=== PATIENT | male | born 1945 | race Caucasian/White ===

== ENCOUNTER 2025-04-05 00:54 | Inpatient (IN) | payer OTHER, MEDICARE ==
[~2025-04-05] VITALS: Ht 172.7 cm; Wt 79.0 kg
[~2025-04-05 00:54] MED LIST: TAMS-55 PO; VITA-268 PO
--- NOTE | 2025-04-05 01:50 | Physician Documentation ---
History of Present Illness ~ Chief Complaint: Mechanical Fall Stated Complaint: MOBILITY ISSUES Time Seen by MD: 01:41 Primary Medical Doctor: GAMAL Mode of Arrival: EMS HPI Patient presents to the emergency room with bilateral leg weakness left greater than right. He has been having unsteady gait for the past two days and fell two days ago with positive head strike. He got up this evening in the middle of the night to go urinate in an up falling secondary to his weakness. He has been seen here previously for urinary tract infection with similar symptoms however he had denies any urinary complaints at this time but he does wear a diaper. States he went to bed at 9:00 p.m. able to ambulate. He is not on blood thinners Tetanus within 5 Years?: No Medication Reconciliation Allergies: Coded Allergies: No Known Allergies (Unverified , 12/05/12) Scheduled Tamsulosin Hcl* (Flomax*), 1 CAP PO DAILY, (Reported) Vitamin B Complex (B Complex), 1 TAB PO DAILY, (Reported) Past Medical History Past Medical History: BPH Past Surgical History: tonsillectomy Alcohol Use: None Lives In: Home Review of Systems ROS All review of systems negative except as per HPI Physical Exam Vital Signs: Temperature: 99.5, Source: Oral, Heart Rate: 62, Respiratory Rate: 18, BP: 124/70, Pulse Oximetry: 95, Weight: 79.000 Oxygen Flow Rate: 0 Physical Exam General: Patient is awake, alert, oriented x4 in no Head: Normocephalic, bruise noted to lateral right eyebrow. Chromic appearing ulcer beneath right nostril Eyes: Conjunctival normal. EOMI. PERRL. ENT: Mucous membranes moist. Neck: Supple, trachea is midline. Chest: Clear to auscultation bilaterally without rales, rhonchi, or wheezes. There is no accessory muscle use or retractions. Cardiac: RRR without murmurs, gallops, or rubs. Abd: Soft, nondistended, nontender, with normoactive bowel sounds. No guarding, rebound, or rigidity. Extremities: Significant bilateral lower extremity weakness left greater than right Progress Progress Note 7:50 a.m. discussed the case with the residency and attending photograph tinter. Patient was admitted to their service. Formal tele neurology consultation was requested at this time. Urinalysis is still pending there were some issues with the patient being inappropriate towards female patient's and the patient was also refusing any treatment from a male nurse. Reviewing laboratory work there is a slight leukocytosis and left shift but otherwise lactic acid and procalcitonin were both negative. Second troponin is negative Results/Orders Results/Orders Orders - MURPHY MCQUEEN MD Electrocardiogram (04/05/25 01:41) Culture Blood (04/05/25 01:41) Chest,Single View (04/05/25 01:41) Ct Head (04/05/25 02:00) Ct Cervical Spine (04/05/25 01:50) Page Hospitalist (04/05/25 05:31) Fill Out Med Reconciliation (04/05/25 05:31) Completed Orders - MURPHY MCQUEEN MD Electrocardiogram (04/05/25 01:41) Cbc/Diff (04/05/25 01:41) MG (04/05/25 01:41) Urinalysis, Cult If Indicated (04/05/25 01:41) Chest,Single View (04/05/25 01:41) Procalcitonin (04/05/25 01:41) BMP (04/05/25 01:41) Lacticsepsis (04/05/25 01:41) Normal Saline 1000ml (Sodium Chloride 10 (04/05/25 01:45) Troponin (Single) (04/05/25 01:50) Ct Head (04/05/25 02:00) Ct Cervical Spine (04/05/25 01:50) Vital Signs 04/05/25 04/05/25 04/05/25 04/05/25 01:13 01:17 04:03 05:49 Temp 99.5 Pulse 62 63 59 Resp 18 15 16 B/P (MAP) 124/70 130/46 (74) 143/56 (85) Pulse Ox 95 95 95 O2 Flow Rate 0 0 0 04/05/25 06:40 Temp 99.5 Pulse 58 Resp 18 B/P (MAP) 128/51 (76) Pulse Ox 98 O2 Flow Rate 0 Laboratory Tests Test 04/05/25 02:05 04/05/25 06:53 White Blood Count 12.8 H Red Blood Count 4.63 L Hemoglobin 14.3 Hematocrit 42.6 Mean Corpuscular Volume 91.9 Mean Corpuscular Hemoglobin 30.8 Mean Corpuscular Hemoglobin Concent 33.6 Red Cell Distribution Width 13.1 Platelet Count 261 Mean Platelet Volume 7.6 Neutrophils (%) (Auto) 77.9 H Lymphocytes (%) (Auto) 10.3 L Monocytes (%) (Auto) 9.8 Eosinophils (%) (Auto) 1.1 Basophils (%) (Auto) 0.9 Neutrophils # (Auto) 10.0 H Lymphocytes # (Auto) 1.3 Monocytes # (Auto) 1.3 H Eosinophils # (Auto) 0.1 Basophils # (Auto) 0.1 CBC Comment Sodium Level 142 Potassium Level 4.5 Chloride Level 108 H Carbon Dioxide Level 25.7 Anion Gap 8 Blood Urea Nitrogen 19 H Creatinine 1.37 H Estimated GFR/1.73 m2 50 BUN/Creatinine Ratio 13.9 Glucose Level 147 H Lactic Acid Level 1.2 Calcium Level 8.9 Magnesium Level 2.0 Troponin I High Sensitivity 88 *H 73 Albumin 3.3 L Procalcitonin < 0.05 Chemistry Comments Microbiology Date/Time Source Procedure Growth Status 04/05/25 02:05 Blood Arm Left Blood Culture - Preliminary NO GROWTH AFTER 1 DAY Resulted Re-Evaluation Re-Evaluation : Re-Evaluation: Unchanged EKG/XRAY/CT/US/VASC/MRI EKG : Additional Comment EKG interpreted by myself who is time of 0207, rate 66, sinus rhythm, left axis deviation, right bundle-branch block, no ST changes Chest X-Ray : Additional Comments Exam: CHEST,SINGLE VIEW CHEST RADIOGRAPH Indication: SEPSIS Technique: Single frontal view of the chest was obtained COMPARISON: CHEST,SINGLE VIEW on DOS: 02/09/23 FINDINGS: Lines and Tubes: None Lungs: Clear Pleura: No effusion. No pneumothorax. Cardiomediastinal contours: Unremarkable Bones: Unremarkable IMPRESSION: 1. No acute disease. Medical Decision Making Findings Patient presents to the emergency room for evaluation of bilateral lower extremity weakness. Last time known normal was at least before he went to bed last night which is outside the window for possible TNK. Symptoms may have even been before this when he fell the day before from weakness. Nonetheless see as unstable gait and unable to walk at this time and will require admission Departure Admitted to Inpatient Unit: yes, to hospitalist Admission Level of Care: Neuro with Tele Impression: Primary Impression: Weakness Additional Impression: Possible stroke Condition: Guarded Referrals: NO PRIMARY CARE PROVIDER (PCP) Signature Scribe Signature: No scribe Attestation: The note accurately reflects work and decisions made by me.Murphy Mcqueen MD 04/05/25 03:28 MURPHY MCQUEEN MD Apr 05, 2025 01:50 STEPHY LANDAVERDE MD Apr 05, 2025 07:53
--- NOTE | 2025-04-05 02:09 | ELECTROCARDIOGRAPH REPORT ---
[facility] Test Date: 2025-04-05 Test Time: 02:07:44 Pat Name: NIDHI VILLALOBOS Department: [facility]-ER Patient ID: [facility]-[id number] Room: Gender: M Prehemmer: BRITNEY : 1945 Requested By: RAS KULKARNI Order Number: [id number] Reading MD: Dr. Armando Chavez Measurements Intervals [place] Rate: 66 P: 0 OR: 53 QRS: -63 QRSD: 139 T: 17 QT: 414 QTc: 434 Interpretive Statements Sinus rhythm Short OR interval RBBB and LAFB Baseline wander in lead(s) II,V2,V3 Electronically Signed On 04-05-2025 6:34:[address] Armando Chavez Please click the below link to view image of tracing.
[2025-04-05 02:17] LABS: BASOPHILS # (AUTO) 0.1 X10'3 (0-0.2); BASOPHILS % (AUTO) 0.9 % (0-1); EOSINOPHILS # (AUTO) 0.1 X10'3 (0-0.9); EOSINOPHILS % (AUTO) 1.1 % (0-6); HEMATOCRIT 42.6 % (42.0-52.0); HEMOGLOBIN 14.3 g/dl (14.0-17.9); LYMPHOCYTES # (AUTO) 1.3 X10'3 (1.1-4.8); LYMPHOCYTES % (AUTO) 10.3 % (21-51); MEAN CORPUSCULAR HEMOGLOBIN 30.8 PG (27.0-31.0); MEAN CORPUSCULAR HGB CONC 33.6 g/dL (33.0-36.5); MEAN CORPUSCULAR VOLUME 91.9 FL (78-98); MEAN PLATELET VOLUME 7.6 FL (7.4-10.4); MONOCYTES # (AUTO) 1.3 X10'3 (0-0.9); MONOCYTES % (AUTO) 9.8 % (2-12); NEUTROPHILS % (AUTO) 77.9 % (42-75); PLATELET COUNT 261 X10'3 (140-440); RED BLOOD COUNT 4.63 X10'6 (4.70-6.10); RED CELL DISTRIBUTION WIDTH 13.1 % (11.5-14.5); WHITE BLOOD COUNT 12.8 X10'3 (4.5-11.0)
--- NOTE | 2025-04-05 02:27 | RADIOLOGY REPORT ---
CHEST RADIOGRAPH Indication: SEPSIS Technique: Single frontal view of the chest was obtained COMPARISON: CHEST,SINGLE VIEW on DOS: 02/09/23 FINDINGS: Lines and Tubes: None Lungs: Clear Pleura: No effusion. No pneumothorax. Cardiomediastinal contours: Unremarkable Bones: Unremarkable IMPRESSION: 1. No acute disease.
[2025-04-05 02:33] LABS: ALBUMIN 3.3 G/DL (3.4-5.0); ANION GAP 8 (8-16); BLOOD UREA NITROGEN 19 MG/DL (7-18); BUN/CREATININE RATIO 13.9 (10.0-20.0); CALCIUM 8.9 MG/DL (8.5-10.1); CHLORIDE 108 MMOL/L (99-107); CREATININE 1.37 MG/DL (0.60-1.10); GLUCOSE 147 MG/DL (70-104); POTASSIUM 4.5 MMOL/L (3.5-5.1); SODIUM 142 MMOL/L (135-145); TOTAL CARBON DIOXIDE 25.7 MMOL/L (24-32); eCRCL 43 ML/MIN; eGFR 50 ML/MIN
[2025-04-05] MEDS: normal saline 1000ml 1,000 ML IV ONE (02:37)
--- NOTE | 2025-04-05 03:03 | RADIOLOGY REPORT ---
EXAM: CT CT HEAD INDICATION: Head strike, TECHNIQUE: CT of the head without intravenous contrast. Radiation Dose : 1. Head: CT Dose: CTDI volume is 62.37 mGy. Dose-length product is 1270.1 mGy*cm The dose indicators for CT are the volume Computed Tomography (CT) Dose Index (CTDIvol) and the Dose Length Product (DLP), and are measured in units of mGy and mGy-cm, respectively. These indicators are not patient dose, but values generated from the CT scanner acquisition factors. The report includes radiation exposure data for exposures received during this examination. COMPARISON: CT HEAD on DOS: 02/11/23, CT HEAD on DOS: 02/09/23 FINDINGS: There is no evidence of acute intracranial hemorrhage, extra-axial collection, mass effect, midline s hift, herniation or hydrocephalus. Increased prominence of the ventricles, sulci and cisterns is consistent with the sequelae of atrophi c cortical volume loss. The garsia-white differentiation is intact. Moderate diffuse partially confluent periventricular and subcortical white matter hypoattenuation is likely related to small vessel ischemic disease. The visualized paranasal sinuses and mastoid air cells are clear. The surrounding soft tissues and osseous structures are unremarkable. IMPRESSION: 1. No acute intracranial abnormality. 2. 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 Radiation optimization: All CT scans at this facility use at least one of these dose optimization isael hniques: automated exposure control mA and/or kV adjustment per patient size (includes targeted exam s where dose is matched to clinical indication) or iterative reconstruction.
--- NOTE | 2025-04-05 03:04 | RADIOLOGY REPORT ---
EXAM: CT CT CERVICAL SPINE HISTORY: Head strike, COMPARISON: None CTDIvol 22 mGy, DLP 581 mGy*cm. TECHNIQUE: Multiple axial CT images of the spine were obtained using bone algorithm. Axial and avendano l reformatting was done. Bone and soft tissue windows were reviewed. FINDINGS: No evidence of definite acute fracture, spinal dislocation, or significant appearing acute subluxatio n is seen. Multilevel degenerative changes of the spine. IMPRESSION: No definite CT evidence of acute fracture or dislocation of the bony cervical spine.
[2025-04-05] MEDS ORDERED: bisacodyl 10mg suppository rectal RC PRN (07:45)
[2025-04-05] MEDS ORDERED: acetaminophen 325mg tablet PO PRN ×2 (07:45)
[2025-04-05] MEDS ORDERED: HYDROcodone/acetaminophen 5mg/325mg tablet PO PRN (07:45)
[2025-04-05] MEDS ORDERED: magnesium Cl slow-release 64mg tablet PO PRN (07:45)
[2025-04-05] MEDS ORDERED: potassium Cl 20 mEq SR tablet PO PRN ×2 (07:45)
[2025-04-05] MEDS ORDERED: morphine 2 MG/ML inj. syringe IV PRN (07:45)
[2025-04-05] MEDS ORDERED: magnesium sulf-water 4G/100mL 100 ML IV PRN (07:45)
[2025-04-05] MEDS ORDERED: magnesium hydroxide 30ml (MOM) UD suspension PO PRN (07:45)
[2025-04-05] MEDS ORDERED: ondansetron/PF 4mg/2ml inj IV PRN (07:45)
[2025-04-05] MEDS ORDERED: potassium Cl 40MEQ/1/2NS 520ml 520 ML IV PRN (07:45)
[2025-04-05] MEDS ORDERED: HYDROmorphone inj. 0.5 MG/0.5 ML DISP.SYRIN IV PRN (07:45)
[2025-04-05] MEDS ORDERED: mag hydrox/Alum hydrox/simeth 30ml oral suspension PO PRN (07:45)
[2025-04-05] MEDS ORDERED: magnesium sulf-water 2g/50mL 50 ML IV PRN (07:45)
[2025-04-05] MEDS: heparin, porcine 5000 units/ml vial SQ SCH (07:58)
[2025-04-05] MEDS: docusate sod 100mg capsule PO SCH (07:58)
[2025-04-05] MEDS: K and/or MAG REPLACEMENT MC SCH (07:58)
[2025-04-05] MEDS: normal saline 1000ml 1,000 ML IV SCH (08:00)
[2025-04-05 08:43] LABS: APTT 26 SECONDS (22-32); PROTHROMBIN TIME 10.2 SECONDS (9.0-12.0)
[2025-04-05 08:55] LABS: MAGNESIUM 1.8 MG/DL (1.5-2.4); POTASSIUM 3.9 MMOL/L (3.5-5.1)
[2025-04-05] MEDS: CefTRIAXone 2gm/D5W 50ml BAG 50 ML IV SCH (09:01)
[2025-04-05 09:03] LABS: HEMOGLOBIN A1C 5.8 % (4.5-6.2)
--- NOTE | 2025-04-05 09:18 | CONSULTATION REPORT ---
History of Present Illness Providers to CC ~ Refering MD: GAMAL Allergies: Coded Allergies: No Known Allergies (Unverified , 12/05/12) Home Medications Home Medications Active Reported B Complex (Vitamin B Complex) 1 Each Tablet 1 Tab PO DAILY Flomax* (Tamsulosin HCl) 0.4 Mg Cap.sr.24h 1 Cap PO DAILY 30 Days Physical Exam Last Vital Signs Recorded: Temperature: 99.5, Source: Oral, Heart Rate: 57, Respiratory Rate: 18, BP: 140/53, Pulse Oximetry: 98, Weight: 79.000 Results Diagram Lab Result Diagram: 04/05/25 0205 04/05/25 0759 Assessment/Plan Additional Plan [place] [facility] Note # Demographics Consult Type: Acute Stroke Level 2 (4.5-24 hrs) Patient Location: Emergency Room First Name: NIDHI Last Name: WILFREDO Date of : 1945 Age: 80 Gender: Male Facility: [facility] Time of Initial Page (): 04/05/2025 08:21 Time of Return Call (): 04/05/2025 08:22 # HPI Chief Complaint: - weakness (focal) History: 80 y/o M presents with worsening balance over the last couple days. Balance has been worse over many years. Fell yesterday. No clear provoking factor. Does use a walker. Fell yesterday because he was using his cane, not his walker. Does endorse weakness in his left leg for the last couple days. No thinners. No prior stroke. Does have pain in his left leg--onset this morning. Does have a chronic back problem. # Scores Time of exam and NIHSS (Deuel ): 04/05/2025 08:25 Level of Consciousness 1a: [0] = Alert; keenly responsive LOC Questions 1b: [0] = Answers both questions correctly LOC Commands 1c: [0] = Performs both tasks correctly Best Gaze 2: [0] = Normal Visual 3: [0] = No visual loss Facial Palsy 4: [0] = Normal symmetrical movements Motor Arm Left 5a: [0] = No drift Motor Arm Right 5b: [0] = No drift Motor Leg Left 6a: [1] = Drift Motor Leg Right 6b: [0] = No drift Limb Ataxia 7: [0] = Absent Sensory 8: [0] = Normal Best Language 9: [0] = No aphasia Dysarthria 10: [0] = Normal Extinction and Inattention 11: [0] = No abnormality NIHSS Total: 1 # Data Head CT: - no bleed - per radiologist read # Assessment Impression: - Weakness Possible stroke given the left leg weakness, though stroke mimics also possible # Plan Thrombolytic/Intervention: NOT IV Thrombolysis or IA Intervention candidate Thrombolytic Exclusion: > 4.5 hours Intraarterial Exclusion: - clinical exam not consistent with presence of large vessel occlusion (LVO), can reconsider if LVO found on vascular imaging Target Blood Pressure: SBP < 220 Labs: - hemoglobin A1c - lipid panel - B12 Imaging: (urgency: STAT): - CT Angiogram Head and CT Angiogram Neck AND call back with results if abnormal Imaging: (urgency: routine): - MRI Brain without contrast - MRI L spine Therapy/Evaluation: - speech/swallow consultation - PT/OT evaluation Medication: - aspirin 81 mg daily - start statin with goal of LDL < 70 Other: - If patient has any neurological deterioration please call me back immediately - LDL < 70 - telemetry monitoring - permissive hypertension - I have discussed my recommendations with the referring provider Additional Recommendations: Extent of stroke w/u to depend on MRI results and clinical course. # Logistics Attestation of consult completion: The patient is located at: [facility]. Facility staff participated in the visit. I performed this telemedicine visit from my offsite office utilizing interactive 2 way audio and visual telecommunication technology. Total time spent in telemedicine encounter: I spent 20 minutes reviewing clinical data and/or imaging, obtaining history, examining the patient, communicating with the onsite care team, and in preparation of this report. # Demographics First Name: NIDHI Last Name: WILFREDO Facility: [facility] DONG CHAUDHARI MD Apr 05, 2025 09:18
[2025-04-05 09:32] LABS: BILIRUBIN,URINE NEGATIVE (Neg); CLARITY,URINE CLEAR (Clear); COLOR,URINE YELLOW (Yellow); GLUCOSE, URINE NEGATIVE (Neg); KETONES,URINE NEGATIVE (Neg); LEUKOCYTE ESTERASE ,URINE NEGATIVE (Neg); NITRITES, URINE NEGATIVE (Neg); OCCULT BLOOD,URINE NEGATIVE (Neg); PH,URINE 5.5 (4.8-8.0); PROTEIN,URINE NEGATIVE (Neg); UROBILINOGEN,URINE 0.2 E.U/dL (0.2-1.0)
[2025-04-05 09:33] LABS: UA COLLECTION TYPE NON-SPECIFIED
[2025-04-05 10:00] VITALS: BP 138/58; PULSE 61; RESP 16; TEMP 97.7; O2SAT 96
[2025-04-05] MEDS: PERFLUTREN PROTEIN-A MICROSPHR (Optison) 0.22 MG/ML 3ML VIAL IV ONE (10:10)
[2025-04-05 10:45] VITALS: RESP 16; O2SAT 97
--- NOTE | 2025-04-05 12:13 | HISTORY AND PHYSICAL-Residence ---
History & Physical Providers to CC Resident Creating Document: CHANA GIL, RES ~ History of Present Illness Primary Medical Doctor: GAMAL Reason for Admit\Complaint: Weakness History of Present Illness This is a 80-year-old male with a history of chronic back pain, BPH presents to the ED with a chief complaint of weakness in his left lower extremity since the last five days. Patient mentions that he has had a fall two days ago and hit his head. He is not on any blood thinners. He had another fall in the middle of the night due to weakness. He denies any burning in the urine, increased frequency of urination. He wears a diaper to prevent accidents. He uses walker to ambulate at home usually but yesterday when he fell he was using his cane. He has a history of chronic generalized weakness since the last three years. He is able to swallow normally in the wrist known dysphasia, dysarthria, paresthesia, flank pain, fever. ED course: Tele neurology was consulted who recommended stroke workup with MRI head, MRA and MRI of the spine, vascular ultrasound, echocardiogram with bubble study, LDL goal less than 70 and starting aspirin. There was mild leukocytosis and was started on antibiotics empirically to treat UTI. Not a candidate for thrombolysis. Allergies: Coded Allergies: No Known Allergies (Unverified , 12/05/12) Home Medications Home Medications Active Reported B Complex (Vitamin B Complex) 1 Each Tablet 1 Tab PO DAILY Flomax* (Tamsulosin HCl) 0.4 Mg Cap.sr.24h 1 Cap PO DAILY 30 Days Past Medical History Past Medical History Chronic back pain, BPH, history of UTIs, melanoma (treated) Past Surgical History Surgical History Comment Tonsillectomy Family History Family History: FH: brain cancer FHx: lung cancer Past Social History Social History Comment He is a nonsmoker, nonalcoholic, denies any drug use. Lives with his at home. Denies any significant family history Smoking: Non-Smoker Alcohol Use: None Lives In: Home ROS ROS Reviewed and negative except for the pertinent positives in HPI Exam Vitals: Vital Signs Date Time Temp Pulse Resp B/P (MAP) Pulse Ox O2 Delivery O2 Flow Rate FiO2 04/05/25 11:36 63 04/05/25 10:45 Room Air 04/05/25 09:13 99.5 18 140/53 (82) 98 0 General: General: Well developed, well nourished, no distress. HEENT: Atraumatic, normal conjunctiva, moist mucous membranes. PERRLA. No nystagmus. Neck: Full range of motion, supple. No JVD. Respiratory: Lungs clear, no respiratory distress. Chest: No accessory muscle use, nontender. Cardiovascular: Regular rate and rhythm. S1-S2 normal. No murmurs. Gastrointestinal: Soft, nontender, nondistended. Bowels sounds present. Extremities: No cyanosis clubbing or edema. Back: No CVA tenderness. Neurologic: Oriented x4. Cranial nerves II to XII are intact. Motor strength is 4/5 in the right leg and 3/5 in the left leg. No sensory abnormalities Psychiatric: Normal mood and affect. Skin: Normal color, warm and dry. No edema, no ecchymosis Musculoskeletal: No obvious joint swelling or tenderness noted. Diagnostic Data Last Recorded Lab Results: 04/05/25 0205 04/05/25 0759 Diagnostic Data: Laboratory Tests Test 04/05/25 07:59 Prothrombin Time 10.2 SECONDS (9.0-12.0) INR International Normalized Ratio 1.0 INR Activated Partial Thromboplast Time 26 SECONDS (22-32) Coagulation Comments Additional Plan Weakness Suspected CVA Received 1 unit NS in the ER. Currently on 70 mL/hour NS. [facility] neurology was consulted. Recommendations appreciated Follow up with MRI head, MRA, echocardiogram, MRI of the spine. Check orthostatic vitals. Lactic acid and procalcitonin are within normal limits. CT head shows chronic sequelae of microvascular disease but no evidence of cervical spine fracture. Patient has passed swallow evaluation. PT pending. Neuro checks. Continue aspirin 81 mg daily and atorvastatin 40 mg. Goal LDL less than 70. Follow up with lipid panel, A1c Mild leukocytosis Started on ceftriaxone empirically for suspected infection of unknown source. However UA is negative. Chest x-ray is unremarkable. However patient has mild fever Type 2 TN EKG shows short VT interval, right bundle-branch block and left anterior fascicular block. No evidence of ST or T-wave changes Troponin trending down from 88 to 73 BPH Continue home medication tamsulosin Code Status: Full code DVT Prophylaxis: Heparin Analgesia/Sedation: Morphine p.r.n. Lines/Tubes: PIV Gi Prophylaxis: None Nutrition: Regular diet PT: Yes Prognosis: Guarded Disposition: Admit to ortho floor with telemetry monitoring Chana Carrillo MD Internal Medicine Resident PGY-1 Date of Service: Apr 05, 2025 Billing Provider: JOSHUA HANNAH MD Common Visit Codes: 03447-[id number] INP/OBS CARE (HIGH) Secondary Visit Codes: 04944-[id number] CARE PLAN 30 MINUTES CHANA GIL, RES Apr 05, 2025 12:13 JOSHUA HANNAH MD Apr 05, 2025 19:03
[2025-04-05] MEDS: aspirin 81mg, enteric-coated 1 TAB TABLET.DR PO SCH (14:07)
[2025-04-05] MEDS: atorvastatin 20mg tablet PO SCH (14:07)
--- NOTE | 2025-04-05 17:45 | VASCULAR REPORT ---
Carotid Duplex Clinical History: Pain Comparison: None Technique: Duplex Doppler evaluation of the extracranial carotid and vertebral arteries including color Doppler and spectral/pulsed waveform analysis was performed. Findings: RIGHT SIDE: The peak systolic velocities are 126 cm/s in the CCA, 93 cm/s in the ICA. The ICA/CCA ratio is 0.0. The external carotid artery is patent with peak systolic velocity of 109 cm/s proximally. The subclavian artery is patent with peak systolic velocity of 150 cm/s. There is appropriate antegrade flow in the right vertebral artery. LEFT SIDE: The peak systolic velocities are 102 cm/s in the CCA, 97 cm/s in the ICA. The ICA/CCA ratio is 1.0. The external carotid artery is patent with peak systolic velocity of 99 cm/s proximally. The subclavian artery is patent with peak systolic velocity of 167 cm/s. There is appropriate antegrade flow in the left vertebral artery. IMPRESSION: No hemodynamically significant stenosis noted in the right carotid system. No hemodynamically significant stenosis noted in the left carotid system. Reference: Radiology 2003; 229:340-346 Normal ICA PSV is <125 cm/sec and no plaque or intimal thickening is visible sonographically addition al criteria include ICA/CCA PSV ratio <2.0 and ICA EDV <40 cm/sec <50% ICA stenosis ICA PSV is <125 cm/sec and plaque or intimal thickening is visible sonographically additional criteria include ICA/CCA PSV ratio <2.0 and ICA EDV <40 cm/sec 50-69% ICA stenosis ICA PSV is 125-230 cm/sec and plaque is visible sonographically additional criter ia include ICA/CCA PSV ratio of 2.0-4.0 and ICA EDV of 40-100 cm/sec 70% ICA stenosis but less than near occlusion ICA PSV is >230 cm/sec and visible plaque and luminal narrowing are seen at garsia-scale and color Doppler ultrasound (the higher the Doppler parameters lie above the threshold of 230 cm/sec, the greater the likelihood of severe disease) additional criteria include ICA/CCA PSV ratio >4 and ICA EDV >100 cm/sec
[2025-04-05 18:00] VITALS: BP 117/57; PULSE 64; RESP 15; TEMP 98.5; O2SAT 94
--- NOTE | 2025-04-05 18:01 | CARDIOLOGY REPORT ---
APPROVED REPORT EXAM: Comprehensive 2D, Doppler, and color-flow Echocardiogram. Patient Location: [facility] Heart Rate: 66 bpm Rhythm: SINUS Indications CEREBRALVASCULAR ACCIDENT CONTRAST NOT ORDERED [employer] Faculty Member: NONE Previous echo: NONE 2D Dimensions RVDd 3.2 cm LA Diam4.0 cm LVOT Diameter 2.20 (1.8-2.4cm) CO 4.8 L/min M-Mode Dimensions Left Atrium(MM) 4.08 (2.5-4.0cm) IVSd 1.24 (0.7-1.1cm) LVDd 5.35 (4.0-5.6cm) Aortic Root 3.58 (2.2-3.7cm) PWd 1.28 (0.7-1.1cm) Aortic Cusp Exc 2.22 (1.5-2.0cm) IVSs 1.73 cm MV EPSS 0.6 (<0.5cm) LVDs 3.87 (2.0-3.8cm) FS (%) 28 % PWs 1.85 cm ESV(Teich) 64.8 ml LVEF(%) 53 (>50%) Aortic Valve AoV Peak Aren. 147.3 cm/s AoV VTI 28.5 cm AO Peak GR. 8.7 mmHg AO Mean GR. 5 mmHg LVOT VTI 16.38 cm LVOT Peak Aren. 67.2 cm/s SNOW(VTI)/BSA 2.18 cm2/m2 SNOW (VTI) 2.18 cm2 AI P 1/2 Time 536 ms Mitral Valve MV E Velocity 63.1 cm/s MV Peak Gr. 3 mmHg MV A Velocity 92.5 cm/s MV PHT 56 ms E/A Ratio 0.7 MVA (PHT) 3.93 cm2 MV VMax86.3 cm/s Tricuspid Valve TR P. Velocity 174 cm/s RAP ESTIMATE 10 mmHg TR Peak Gr. 12 mmHg RVSP 22 mmHg LEFT VENTRICLE Normal LV size and wall thickness. Overall systolic function is normal. LVEF is 55-60%. RIGHT VENTRICLE RV is normal size and function. ATRIA Left atrium is mildly dilated. AORTIC VALVE Trileaflet AV appears minimally sclerotic without stenosis. Mild insufficiency. MITRAL VALVE Mild MV annular calcification with leaflet thickening without stenosis. Trace regurgitation. TRICUSPID VALVE TV appears structurally normal with trace regurgitation. PULMONIC VALVE Normal PV without stenosis, physiologic insufficiency. GREAT VESSELS Aortic root is normal in size. Ascending aorta is normal in size. PERICARDIUM Normal pericardium. No effusion. Conclusion Normal LV size and wall thickness. Overall systolic function is normal. LVEF is 55-60%. RV is normal size and function. Left atrium is mildly dilated. Trileaflet AV appears minimally sclerotic without stenosis. Mild insufficiency. Mild MV annular calcification with leaflet thickening without stenosis. Trace regurgitation. TV appears structurally normal with trace regurgitation. Normal pericardium. No effusion.
[2025-04-05 20:00] VITALS: RESP 16; O2SAT 98
[2025-04-05 22:00] VITALS: BP 148/56; PULSE 65; RESP 16; TEMP 100; O2SAT 95
--- NOTE | 2025-04-05 22:32 | PROGRESS NOTE ---
Daily Progress Note Providers to CC ~ Antibiotic Timeout Antibiotic Ordered?: No Subjective The patient informs me that he has been dizzy for a few months however his left lower extremity weakness it was acute in his started yesterday. The patient has no acute complaints currently Objective Vital Signs Date Time Temp Pulse Resp B/P (MAP) Pulse Ox O2 Delivery O2 Flow Rate FiO2 04/05/25 20:00 16 98 Room Air 0.0 04/05/25 18:30 61 04/05/25 10:00 97.7 138/58 (84) Result Diagram: 04/05/25 0205 04/05/25 0759 Gen. No acute distress alert and oriented 4 Lungs clear to ascultation bilaterally, no wheezes rales or rhonchi appreciated Heart normal sinus rhythm no murmurs rubs or clicks noted Abdomen soft nontender bowel sounds are normoactive Lower extremities no clubbing cyanosis, nor edema appreciated bilaterally Neuro: Muscle strength is 5/5 and on the right lower extremity and 5- out of five on the left lower extremity Coagulation Studies Laboratory Tests Test 04/05/25 07:59 Prothrombin Time 10.2 SECONDS (9.0-12.0) INR International Normalized Ratio 1.0 INR Activated Partial Thromboplast Time 26 SECONDS (22-32) Coagulation Comments Problem\Assessment\Plan # acute left lower extremity weakness likely secondary to a acute CVA Evaluated by Dr. Dung Stewart tele neurologist- permissive hypertension MRI of the head has been obtained MRA of the head and neck has a has been obtained Carotid ultrasound was negative for any significant hemodynamic stenosis bilaterally Lumbar spine MRI has been obtained as well Echocardiogram was unremarkable with a LVEF of 55-60% Permissive hypertension allow systolic blood pressure less than 220 81 mg aspirin daily Fasting lipid panel is ordered Note admitted by Dr. Lake today Date of Service: Apr 05, 2025 Billing Provider: DAMI BURRIS DO Common Visit Codes: NOT BILLABLE (Admitted after midnight to be billed by log data technician) DAMI BURRIS DO Apr 05, 2025 22:32
--- NOTE | 2025-04-05 23:01 | RADIOLOGY REPORT ---
PROCEDURE: MR MRA HEAD INDICATION: stroke like symptoms 04/05/2025 09:00 PM COMPARISON: None TECHNIQUE: MRA head without intravenous contrast. 3D image postprocessing was performed on a dedicated workstation and images were used for interpretat ion and reporting. FINDINGS: MRA head: There is preserved enhancement within the bilateral distal internal carotid arteries. There is preserved enhancement within the anterior and middle cerebral arteries. There is preserved enhancement within the vertebral arteries, basilar artery, cerebellar arteries and posterior cerebral arteries. There is no evidence of hemodynamically significant intracranial stenosis, proximal occlusion or aneu rysm. IMPRESSION: No evidence of hemodynamically significant intracranial stenosis, proximal occlusion or aneurysm.
[2025-04-06] VITALS (7 sets, daily range): BP systolic 128–135; BP diastolic 47–60; PULSE 56–72; RESP 16; TEMP 98–99.1; O2SAT 91–95
--- NOTE | 2025-04-06 04:05 | RADIOLOGY REPORT ---
PROCEDURE: MR MRI HEAD INDICATION: Stroke-like symptoms EXAM DATE: 04/05/2025 09:00 PM COMPARISON: CT CT HEAD on DOS: 04/05/25, CT HEAD on DOS: 02/11/23, CT HEAD on DOS: 02/09/23 TECHNIQUE: MRI of the brain without intravenous contrast. FINDINGS: Diffusion weighted images of the brain demonstrate no evidence of acute infarction. There is no evidence of acute intracranial hemorrhage, extra-axial collection, mass effect, midline s hift, herniation or hydrocephalus. Diffuse cerebral atrophy with commensurate prominence of the sulci, ventricles and cisterns. The signal intensities of the brain parenchyma are within normal limits. There is nonspecific periventricular and subcortical T2/FLAIR hyperintense white matter changes. Diff erential includes: Demyelinating disease, chronic microangiopathic change, residua of migraine headac hes or other postinflammatory residua. The major vascular flow voids are present. The visualized paranasal sinuses and mastoid air cells are clear. The surrounding soft tissues and o sseous structures are unremarkable. IMPRESSION: No evidence of acute infarction, intracranial hemorrhage, mass effect or hydrocephalus.
--- NOTE | 2025-04-06 04:07 | RADIOLOGY REPORT ---
PROCEDURE: MR MRA NECK INDICATION: bilateral leg weakness Exam Date: 04/05/2025 09:26 PM COMPARISON: None TECHNIQUE: MRA neck without intravenous contrast. 3D image postprocessing was performed on a dedicated workstation and images were used for interpretat ion and reporting. FINDINGS: MRA neck: The visualized thoracic aortic arch and proximal great vessels are unremarkable. There is no evidenc e of hemodynamically significant stenosis involving the bilateral common and internal carotid arterie s. The cervical vertebral arteries are patent. There is no evidence of dissection. IMPRESSION: No evidence of hemodynamically significant cervical stenosis or dissection. CAROTID STENOSIS REFERENCE Distal internal carotid artery diameter as the denominator for stenosis measurement: MILD = <50% stenosis. MODERATE = 50-69% stenosis. SEVERE = 70-89% stenosis. CRITICAL = 90-99% stenosis. OCCLUDED = 100% stenosis.
--- NOTE | 2025-04-06 04:10 | RADIOLOGY REPORT ---
PROCEDURE: MRI lumbar spine without contrast. INDICATION: Lower extremity weakness COMPARISON: None TECHNIQUE: MRI lumbar spine without intravenous contrast utilizing multiplanar, multisequence techni que. FINDINGS: The alignment of the lumbar spine vertebral bodies is preserved. Bone marrow signal is homogenous and unremarkable. The vertebral body heights are maintained. The intervertebral disc spaces are there is diminished T2 signal intensity in the disc spaces compatible with desiccation. The conus medullaris is normal in signal characteristics and terminates at the T12-L1 level. Paraspinal muscles are unrema rkable. At the T12-L1 level, there is no evidence of central spinal canal or neuroforaminal stenosis. At the L1-L2 level, there is no evidence of central spinal canal or neuroforaminal stenosis. At the L2-L3 level, there is no evidence of central spinal canal or neuroforaminal stenosis. At the L3-L4 level, there is broad-based posterior disc bulge, ligamentum flavum and facet hypertroph y. There is mild canal stenosis. There is mild bilateral neural foraminal stenosis. At the L4-L5 level, there is broad-based posterior disc bulge, ligamentum flavum and facet hypertroph y. There is mild canal stenosis. There is severe bilateral neural foraminal stenosis. At the L5-S1 level, there is posterior central disc protrusion. No significant spinal stenosis. Mod erate bilateral neural foraminal stenosis. Other: None. IMPRESSION: 1. Multilevel lumbar spondylosis most severe there is severe bilateral stenosis. Posterior central di sc protrusion at L5-S1 without significant spinal stenosis. Moderate bilateral neural foraminal sten osis at L5-S1.
[2025-04-06 07:14] LABS: BASOPHILS # (AUTO) 0.1 X10'3 (0-0.2); BASOPHILS % (AUTO) 0.9 % (0-1); EOSINOPHILS # (AUTO) 0.2 X10'3 (0-0.9); EOSINOPHILS % (AUTO) 2.7 % (0-6); HEMATOCRIT 34.8 % (42.0-52.0); HEMOGLOBIN 11.9 g/dl (14.0-17.9); LYMPHOCYTES # (AUTO) 1.8 X10'3 (1.1-4.8); LYMPHOCYTES % (AUTO) 25.3 % (21-51); MEAN CORPUSCULAR HEMOGLOBIN 31.3 PG (27.0-31.0); MEAN CORPUSCULAR HGB CONC 34.1 g/dL (33.0-36.5); MEAN CORPUSCULAR VOLUME 91.6 FL (78-98); MEAN PLATELET VOLUME 8.2 FL (7.4-10.4); MONOCYTES % (AUTO) 13.8 % (2-12); NEUTROPHILS # (AUTO) 4.2 X10'3 (1.8-7.7); NEUTROPHILS % (AUTO) 57.3 % (42-75); PLATELET COUNT 213 X10'3 (140-440); RED CELL DISTRIBUTION WIDTH 13.1 % (11.5-14.5); WHITE BLOOD COUNT 7.3 X10'3 (4.5-11.0)
[2025-04-06 07:32] LABS: ALANINE AMINOTRANSFERASE 27 U/L (12-78); ALBUMIN 2.5 G/DL (3.4-5.0); ALBUMIN/GLOBULIN RATIO 0.8 (1.1-1.5); ALKALINE PHOSPHATASE 81 IU/L (46-116); ANION GAP 9 (8-16); ASPARTATE AMINO TRANSFERASE 25 U/L (10-37); BILIRUBIN,TOTAL 0.8 MG/DL (0.1-1.0); BLOOD UREA NITROGEN 17 MG/DL (7-18); BUN/CREATININE RATIO 13.2 (10.0-20.0); CALCIUM 8.1 MG/DL (8.5-10.1); CHLORIDE 107 MMOL/L (99-107); CHOL/HDL RATIO 2.7 (0.00-4.99); CHOLESTEROL 134 MG/DL (0-200); CREATININE 1.29 MG/DL (0.60-1.10); GLUCOSE 113 MG/DL (70-104); HDL CHOLESTEROL 49 MG/DL (35-60); LDL CHOLESTEROL 69 MG/DL (50-100); POTASSIUM 3.9 MMOL/L (3.5-5.1); SODIUM 142 MMOL/L (135-145); TOTAL CARBON DIOXIDE 25.9 MMOL/L (24-32); TOTAL PROTEIN 5.7 G/DL (6.4-8.2); TRIGLYCERIDES 73 MG/DL (20-135); eCRCL 46 ML/MIN; eGFR 54 ML/MIN
--- NOTE | 2025-04-06 15:56 | PROGRESS NOTE- Residence ---
Progress Note - Resident Providers to CC Resident Creating Document: GILCHANA RES ~ Antibiotic Timeout Antibiotic Ordered?: Yes Subjective Patient was seen and examined at the bedside. He mentions that he was not able to work with physical therapy due to severe weakness. He was also not able to transferred to the commode and back to the bed. MRI spine shows significant stenosis the lumbar spine. Consulted Dr. Recio who will evaluate the patient for surgery. Objective Vital Signs Date Time Temp Pulse Resp B/P (MAP) Pulse Ox O2 Delivery O2 Flow Rate FiO2 04/06/25 10:00 98.3 68 16 135/60 (85) 94 Room Air 04/06/25 08:00 0.0 Result Diagram: 04/06/25 0552 04/06/25 0552 Coagulation Studies Laboratory Tests Test 04/05/25 07:59 Prothrombin Time 10.2 SECONDS (9.0-12.0) INR International Normalized Ratio 1.0 INR Activated Partial Thromboplast Time 26 SECONDS (22-32) Coagulation Comments Assessment Assessment This is a 80-year-old male with a history of chronic back pain, BPH presents to the ED with a chief complaint of weakness in his left lower extremity since the last five days. Patient mentions that he has had a fall two days ago and hit his head. He is not on any blood thinners. He had another fall in the middle of the night due to weakness. He denies any burning in the urine, increased frequency of urination. He wears a diaper to prevent accidents. He uses walker to ambulate at home usually but yesterday when he fell he was using his cane. He has a history of chronic generalized weakness since the last three years. He is able to swallow normally in the wrist known dysphasia, dysarthria, paresthesia, flank pain, fever. ED course: Tele neurology was consulted who recommended stroke workup with MRI head, MRA and MRI of the spine, vascular ultrasound, echocardiogram with bubble study, LDL goal less than 70 and starting aspirin. There was mild leukocytosis and was started on antibiotics empirically to treat UTI. Not a candidate for thrombolysis. Plan Plan Weakness secondary to lumbar spinal stenosis Suspected CVA Received 1 unit NS in the ER. Currently on 70 mL/hour NS. Blue roberto tele neurology was consulted. Recommendations appreciated MRI head, MRA, echocardiogram, are within normal limits. MRI of the spine Multilevel lumbar spondylosis most severe there is severe bilateral stenosis. Posterior central disc protrusion at L5-S1 without significant spinal stenosis. Moderate bilateral neural foraminal stenosis at L5-S1. Dr. Recio consulted. Recommendations appreciated. Check orthostatic vitals. Lactic acid and procalcitonin are within normal limits. CT head shows chronic sequelae of microvascular disease but no evidence of cervical spine fracture. Patient has passed swallow evaluation. PT pending. Neuro checks. Continue aspirin 81 mg daily and atorvastatin 40 mg. Goal LDL less than 70. lipid panel was within normal limits, A1c 5.8 Mild leukocytosis, resolved Started on ceftriaxone empirically for suspected infection of unknown source. UA is negative. Chest x-ray is unremarkable. However patient has mild fever. Type 2 ID EKG shows short TX interval, right bundle-branch block and left anterior fascicular block. No evidence of ST or T-wave changes Troponin trending down from 88 to 73 BPH Continue home medication tamsulosin Code Status: Full code DVT Prophylaxis: Heparin Analgesia/Sedation: Morphine p.r.n. Lines/Tubes: PIV Gi Prophylaxis: None Nutrition: Regular diet PT: Yes Prognosis: Guarded Disposition: Continue care in ortho floor. Chana Diaz MD Internal Medicine Resident PGY-1 Date of Service: Apr 06, 2025 Billing Provider: JESU MILLAN MD,CHANA DIAZ, RES Apr 06, 2025 15:56
--- NOTE | 2025-04-06 17:19 | RADIOLOGY REPORT ---
EXAM: CT CT LUMBAR SPINE INDICATION: Rule out pelvic fractures COMPARISON: MR MRI LUMBAR SPINE on DOS: 04/05/25 TECHNIQUE: Multiple axial CT images of the lumbar spine were obtained using bone algorithm. Axial an d coronal reformatting was done. Bone and soft tissue windows were reviewed. Radiation Dose Information: CT Dose: CTDI volume is 25.66 mGy. Dose-length product is 859.91 mGy*cm FINDINGS: 5 [id number] lumbar-type vertebrae. Mild straightening of the lumbar lordosis. Multilevel anteri or bridging osteophytes of the lower thoracic and lumbar spine. Minimal loss of superior vertebral emma dy height of L2 which appears chronic. Diffuse demineralization. Minimal posterior disc bulge at L4-L5 and L5-S1 without significant spinal canal stenosis. Mild-to-mo derate right with mild left-sided neural foramina stenosis at L3-L4. Moderate to severe bilateral alma ral foramina stenosis at L4-L5 moderate to severe Right with mild left-sided neural foramina stenosis at L5-S1. Moderate degenerative changes of bilateral SI joints. Sclerotic focus of the right pelvic bone which may represent a bone island /blastic lesion. The paraspinal muscles unremarkable. Cholelithiasis of the partially visualized gallbladder with no evidence for acute cholecystitis. IMPRESSION: No CT evidence of acute traumatic fractures or spondylolisthesis. Radiation optimization: All CT scans at this facility use at least one of these dose optimization isael hniques: automated exposure control mA and/or kV adjustment per patient size (includes targeted exam s where dose is matched to clinical indication) or iterative reconstruction.
--- NOTE | 2025-04-06 17:40 | RADIOLOGY REPORT ---
COMPUTERIZED TOMOGRAPHY PELVIS WITHOUT CONTRAST REASON FOR EXAM: Rule out pelvic fractures. Pain. COMPARISON: None TECHNIQUE: Spiral scans were acquired from the diaphragm to the symphysis pubis without intravenous c ontrast administration. Images were constructed with a slice thickness of 5 mm. 2-D coronal and sagit amadou reformatted images were provided. Automated exposure control was used. RADIATION DOSE: CTDI: 20 mGy DLP: 563 mGy-cm FINDINGS: There is no pathologic distention of the visualized large or small bowel. The appendix is normal. Th ere is mild sigmoid diverticulosis without evidence of diverticulitis. No free fluid is identified in the pelvis. There is eccentric thickening of the upper rectum that may represent a fold in the bowel wall although sigmoidoscopy/ colonoscopy is recommended to rule out malignancy. There is no patholog ic lymphadenopathy by size criteria. The urinary bladder is unremarkable. The prostate is significa ntly enlarged. There is a small fat containing left inguinal hernia. No fracture is identified in the bony pelvis. IMPRESSION: Eccentric thickening of the upper rectum may represent a fold in the bowel wall although neoplasm not excluded. Sigmoidoscopy/ colonoscopy are suggested. No bony fractures. Enlarged prostate. Small fat containing left inguinal hernia.
[2025-04-07 04:12] VITALS: BP 142/55; PULSE 54
[2025-04-07 06:00] VITALS: BP 144/60; PULSE 57; RESP 16; TEMP 98; O2SAT 95
[2025-04-07 06:23] LABS: BASOPHILS # (AUTO) 0.1 X10'3 (0-0.2); BASOPHILS % (AUTO) 1.1 % (0-1); EOSINOPHILS # (AUTO) 0.3 X10'3 (0-0.9); EOSINOPHILS % (AUTO) 4.5 % (0-6); HEMATOCRIT 35.9 % (42.0-52.0); HEMOGLOBIN 12.2 g/dl (14.0-17.9); LYMPHOCYTES # (AUTO) 1.8 X10'3 (1.1-4.8); LYMPHOCYTES % (AUTO) 25.2 % (21-51); MEAN CORPUSCULAR HEMOGLOBIN 31.2 PG (27.0-31.0); MEAN CORPUSCULAR HGB CONC 33.9 g/dL (33.0-36.5); MEAN CORPUSCULAR VOLUME 91.9 FL (78-98); MEAN PLATELET VOLUME 7.9 FL (7.4-10.4); MONOCYTES % (AUTO) 14.2 % (2-12); PLATELET COUNT 212 X10'3 (140-440); RED BLOOD COUNT 3.91 X10'6 (4.70-6.10); RED CELL DISTRIBUTION WIDTH 12.9 % (11.5-14.5); WHITE BLOOD COUNT 7.2 X10'3 (4.5-11.0)
[2025-04-07 06:54] LABS: ALANINE AMINOTRANSFERASE 30 U/L (12-78); ALBUMIN 2.3 G/DL (3.4-5.0); ALBUMIN/GLOBULIN RATIO 0.7 (1.1-1.5); ALKALINE PHOSPHATASE 85 IU/L (46-116); ANION GAP 8 (8-16); ASPARTATE AMINO TRANSFERASE 21 U/L (10-37); BILIRUBIN,TOTAL 0.4 MG/DL (0.1-1.0); BLOOD UREA NITROGEN 19 MG/DL (7-18); BUN/CREATININE RATIO 14.7 (10.0-20.0); CALCIUM 8.3 MG/DL (8.5-10.1); CHLORIDE 111 MMOL/L (99-107); CREATININE 1.29 MG/DL (0.60-1.10); GLUCOSE 123 MG/DL (70-104); POTASSIUM 4.1 MMOL/L (3.5-5.1); SODIUM 143 MMOL/L (135-145); TOTAL CARBON DIOXIDE 24.1 MMOL/L (24-32); TOTAL PROTEIN 5.7 G/DL (6.4-8.2); eCRCL 46 ML/MIN; eGFR 54 ML/MIN
[2025-04-07 08:00] VITALS: BP_SYST 135; BP_SYST 136; BP_DIAS 52; BP_DIAS 54; PULSE 56; PULSE 61; PULSE 71; RESP 16; O2SAT 94
[2025-04-07 10:00] VITALS: BP 136/54; PULSE 57; RESP 20; TEMP 97.8; O2SAT 94
--- NOTE | 2025-04-07 15:01 | CONSULTATION REPORT ---
History of Present Illness Providers to CC ~ Reason for Admit\Admit Dx: Weakness Refering MD: GAMAL History of Present Illness 80 y/o M presents with worsening balance over the last couple days. Balance has been worse over many years. Fell yesterday. No clear provoking factor. Does use a walker. Fell yesterday because he was using his cane, not his walker. Does endorse weakness in his left leg for the last couple days. No thinners. No prior stroke. Does have pain in his left leg--onset this morning. Does have a chronic back problem. Allergies: Coded Allergies: No Known Allergies (Unverified , 12/05/12) Home Medications Home Medications Active Reported B Complex (Vitamin B Complex) 1 Each Tablet 1 Tab PO DAILY Flomax* (Tamsulosin HCl) 0.4 Mg Cap.sr.24h 1 Cap PO DAILY 30 Days Past Medical History Medical History Comment per chart Past Family History Family History: FH: brain cancer FHx: lung cancer Physical Exam Last Vital Signs Recorded: Temperature: 97.8, Source: Oral, Heart Rate: 57, Respiratory Rate: 20, BP: 136/54, Pulse Oximetry: 94, Weight: 79.000 General Appearance: alert, no apparent distress EENT: PERRL/EOMI, normal ENT inspection Neck: normal inspection, non-tender Respiratory: lungs clear Chest: chest non-tender Cardiovascular: normal peripheral pulses Peripheral Pulses: 2+ femoral (L), 2+ dorsalis pedis (R) Gastrointestinal: normal palpation, non-tender Genitalia: normal Rectal: deferred Back: normal inspection Extremities: normal range of motion, non-tender, no edema Neurologic: oriented x4, sample body builder II-XII nml as tested Neurologic Severe increased reflexes in 4 extremities Positive vivar positive babbinsky Gait in tandem impaired Decreased positional sensation in lower extremities Results Diagram Lab Result Diagram: 04/07/25 0552 04/07/25 0552 #1 XRAY: c-spine Assessment/Plan Additional Plan Patient has progressive loss of balance Transient incresed difficulty walking Patient have severe increased reflexes and abnormal reflexes in 4 extremities and complete impossibility for gait in tandem positive Romberg I reviewed recent MRI brain and lumbar spine performed here that showed no evidence of stroke. Degenerative disc disease and some degree of foraminal stenosis in lumbar spine but no severe compression of the nerve roots. These findings do not explain the symptoms and clinical findings on this patient. 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 MRI cervical spine is indicated but at this time this patient is feeling better from his acute symptoms and is back to his baseline of progressive difficulty walking and loss of balance. At this time I recommend to perform an MRI of the cervical spine without contrast to clarify if there is significant spinal coerd compression on the cervical spine that could explain his presentation. I will order that test as outpatient and have андрей back on the office with the results. The patiernt has a payment collector of urine sat this time, Not clear if urinary bladder control have been present to a significant degree. ROBERTO MATUTE MD Apr 07, 2025 15:00
[2025-04-07] MEDS ORDERED: ATOR40TA PO (17:12)
[2025-04-07] MEDS ORDERED: ASPI-1071 PO (17:12)
--- NOTE | 2025-04-07 19:02 | DISCHARGE SUMMARY-Residence ---
Discharge Summary Providers to CC Resident Creating Document: PHONGULYSSES MOSLEY ~ Discharge Summary Admission Diagnosis: weakness, fall Hospital Course DATE OF ADMISSION: 04/05/2025 DATE OF DISCHARGE: 04/07/2025 Discharge Diagnosis\Comment: # Bilateral lower extremities weakness especially on left side secondary to lumbar spinal stenosis # Ruled out CVA # T2DM # Hx of BPH # right bundle branch block and left anterior fascicular block Operations\Procedures: None Consultants: Dr. Diego, neurosurgery [facility] tele neurology consultation Complications: None Condition on DC: Stable New Medications: Atorvastatin Calcium* (Lipitor*) 40 Mg Tablet 1 TAB PO DAILY for 30 Days, #30 TAB Aspirin (Ecotrin*) 81 Mg Tablet.dr 1 TAB PO DAILY for 30 Days, #30 TAB.SR Continued Medications: Tamsulosin Hcl* (Flomax*) 0.4 Mg Cap.sr.24h 1 CAP PO DAILY for 30 Days, #30 CAP Vitamin B Complex (B Complex) 1 Each Tablet 1 TAB PO DAILY Discharge Summary: A 80-year-old male with history of chronic back pain, BPH presents to the ED with a chief complaint of weakness in his left lower extremity over five days. Patient mentioned that he has had a fall two days ago and hit his head. He was not on any blood thinners. He had another fall in the middle of the night due to weakness. He denied any burning in the urine, increased frequency of urination. He wears a diaper to prevent accidents. He uses walker to ambulate at home usually but yesterday when he fell when he was using his cane. He has a history of chronic generalized weakness since the last three years. He is able to swallow normally in the wrist known dysphasia, dysarthria, paresthesia, flank pain, fever. Hospital course: He was admitted to the neurological floor for further neurological monitoring and investigations with management plan. There was mild leukocytosis and was started on antibiotics empirically to treat UTI in ER. He was given IV 1 L 0.9% sodium chloride on 70 mL/hr. Tele neurology consultation was requested with NIHSS score showed one, recommended for initiation of her aspirin 81 mg daily and atorvastatin 40 mg with a goal of LDL< 70, orthostatic hypotension.. His lipid profile showed total cholesterol 134, triglycerides 73, HDL 49, LDL 69, HGB A1c on 04/05/2025 showed 5.8. 2D echocardiogram on 04/05/2025 showed LVEF 55-60%, LA mildly dilated, trace MR, TR, normal pericardium and no effusion. Head CT scan without IV contrast on 04/05/2025 showed IMPRESSION: 1. No acute intracranial abnormality. 2. 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 Bilateral carotid artery ultrasound on 04/05/2025 showed no hemodynamically significant stenosis noted in the bilateral carotid system. He underwent MRI head on 04/05/2025 showed no evidence of acute infarction, intracranial hemorrhage, mass effect or hydrocephalus. Head MRA on 04/05/2025 showed No evidence of hemodynamically significant intracranial stenosis, proximal occlusion or aneurysm. MRA neck No evidence of hemodynamically significant cervical stenosis or disse ction. Cervical spine CT scan on 04/05/[address] evidence of acute fracture or dislocation of the bony cervical spine. Lumbar spine MRI without contrast on 04/05/2025 showed Multilevel lumbar spondylosis most severe there is severe bilateral stenosis. Posterior central disc protrusion at L5-S1 without significant spinal stenosis. Moderate bilateral neural foraminal stenosis at L5-S1. Lumbar spine CT scan on 04/06/[address] evidence of acute traumatic fractures or spondylolisthesis. Pelvis CT scan without IV contrast on 04/06/2025 showed Eccentric thickening of the upper rectum may represent a fold in the bowel wall although neoplasm not excluded. Sigmoidoscopy/ colonoscopy are suggested. No bony fractures. Enlarged prostate. Small fat containing left inguinal hernia. Neurosurgery, Dr. Lisa Penn was consulted, stated that Degenerative disc disease and some degree of foraminal stenosis in lumbar spine but no severe compression of the nerve roots, which are not explaining his symptoms and clinical findings. He recommended to perform an MRI of the cervical spine without contrast to clarify if there is significant spinal cord compression on the cervical spine that could explain his presentation and he will order that test as outpatient. The patient has a legal collector of urine sat this time, Not clear if urinary bladder control have been present to a significant degree. Today, he was evaluated by the physical therapy at hospital, recommended for home discharge with home health for PT. All of his labs were reviewed WNL with WBC 7.2, hemoglobin 12.2, hematocrit 35.9, platelet count 212, serum sodium 143, potassium 4.1, BUN 19, creatinine 1.29. All of his concerns and questions were addressed with the best knowledge of erectile before he was discharged. All of his vitals were stable at the moment with temp 97.8 F, TN 57/minute, RR 20/minute, BP 136/54 mm Hg, pulse oximetry 94% on room air. On exam, General: Well alert, well oriented, not confused, not agitated, not in acute distress, well cooperated during the physical. HEENT: Conjunctive are pink, sclerae clear, no icterus, pupil is equal in both sides, reactive to light, no ear discharge, no pharyngeal erythema or an edema, mouth and lips are moist. Neck: Supple, no JVD, no lymphadenopathy and thyromegaly. Lungs:Equal air entry on both lungs, no additional sounds Heart: S1-S2 regular sinus rhythm and, regular rate, no gallops, no rubs, no murmurs Abdomen: No visible peristalsis, Bowel sounds present on auscultation, soft, nontender, no guarding, no rigidity Extremities: Tingling/numbness over the left lower extremities, No obvious deformities, no pitting edema bilaterally, capillary refill intact, able to wiggle toes both sides, peripheral pulsations are intact on both sides ANGLE SHEARER: No focal neurological deficits, power on left leg 4/5, no motor and sensory weakness in other extremities, could move all 4 extremities Musculoskeletal: No joint swelling, deformities, inflammations, and no scoliosis and back tenderness Skin: No active skin lesions and rashes Discharge instructions: -please return to ER for any emergencies conditions including sudden new focal neurologic deficits, weakness and abnormal sensations bilateral legs, sudden loss of bowel and bladder control functions, abnormal new weird sensations including numbness and tingling around the perianal and perineal area etc.. -follow up with PCP and Neurosurgery Dr. Colbert in 1-2 weeks for further management including labs recheck, physical therapy, neurological check including MRI of the cervical spine without contrast by Dr. Colbert at the clinic. Resident MD attestation: Patient was seen, examined and discussed with attending MD, Dr. Mindy DARLING MD Internal Medicine Resident, PGY2 [facility] *Problems/Diagnosis: (1) Lower extremity weakness Status: Acute Total Time Spent on D/C: > 30 Minutes Date of Service: Apr 07, 2025 Billing Provider: JESU MILLAN MD, TIN, RES Apr 07, 2025 18:35
== END 2025-04-07 18:30 | disposition home health service (06) | DRG 551 ==
LOC: ER 00:55 → ED HOLD 07:49 → ORTHO 4S 09:55
PROVIDERS: ADMIT Internal Medicine; ATTEND Internal Medicine
DX: M48.07 Spinal stenosis, lumbosacral region (principal); M51.27 Other intervertebral disc displacement, lumbosacral region; I21.A1 Myocardial infarction type 2; I45.2 Bifascicular block; N40.0 Benign prostatic hyperplasia without lower urinary tract symptoms; D72.829 Elevated white blood cell count, unspecified; Z80.1 Family history of malignant neoplasm of trachea, bronchus and lung; Z80.8 Family history of malignant neoplasm of other organs or systems
CPT/HCPCS: 36415; 70450; 70544; 70547; 70551; 71045; 72125; 72131; 72148; 72192; 80048; 80053; 80061; 81003; 83036; 83605; 83735; 83880; 84132; 84145; 84484; 85025; 85610; 85730; 87040; 87081; 92508; 92616; 93005; 93306; 93880; 96361; 96365; 97116; 97161; 97530; 99285; A4314; A6590; C1758; G0378; J0696; J1644; J7030